=== PATIENT | female | born 1985 | race African-American/Black ===

== ENCOUNTER 2020-01-16 05:01 | Emergency (ER) | payer OTHER ==
[~2020-01-16] VITALS: Ht 154.9 cm; Wt 37.6 kg
[2020-01-16] MEDS ORDERED: PREDNISONE 5 MG5 MG PO (05:18)
[2020-01-16] MEDS ORDERED: NORVASC 2.5 MG2.5 M1 PO (05:19)
[2020-01-16] MEDS ORDERED: ATIVAN0.5 M1 PO (05:22)
[2020-01-16] MEDS ORDERED: ALBUTEROL INH (05:24)
[2020-01-16 05:52] LABS: URINE BILIRUBIN NEGATIVE (Negative); URINE BLOOD NEGATIVE (Negative); URINE CLARITY CLEAR; URINE COLOR YELLOW; URINE GLUCOSE-RANDOM* NEGATIVE (Negative); URINE KETONES NEGATIVE (Negative); URINE LEUKOCYTES-REFLEX NEGATIVE (Negative); URINE NITRITE-REFLEX NEGATIVE (Negative); URINE PROTEIN (DIPSTICK) NEGATIVE (Negative); URINE SPECIFIC GRAVITY 1.015 (1.005-1.035)
[2020-01-16 05:53] LABS: ABSOLUTE NEUTROPHILS 2.6 thou/uL (1.4-8.2); BASOPHILS 0.4 % (0.0-2.0); EOSINOPHILS 1.9 % (0.0-3.0); HEMATOCRIT 36.1 % (37.0-47.0); HEMOGLOBIN 12.1 gm/dL (12.0-15.0); LYMPHOCYTES 29.1 % (24.0-44.0); MCH 31.3 pg (26.0-34.0); MCHC 33.5 g/dL (28.0-37.0); MCV 93.5 fL (80.0-100.0); MONOCYTES 10.7 % (1.0-8.0); PLATELET COUNT 302 thou/uL (150-400); POLYS 57.9 % (36.0-66.0); RBC 3.86 mil/uL (4.20-5.00); WBC 4.5 thou/uL (4.0-11.0)
[2020-01-16 06:09] LABS: ANION GAP 11 mmol/L (7-16); BUN 6 mg/dL (7-18); CALCIUM 8.9 mg/dL (8.5-10.1); CHLORIDE 99 mmol/L (98-107); CO2 25 mmol/L (21-32); CREATININE 0.8 mg/dL (0.6-1.0); GLUCOSE 86 mg/dL (74-106); POTASSIUM 4.2 mmol/L (3.5-5.1); SODIUM 135 mmol/L (136-145)
[2020-01-16 06:18] LABS: TROPONIN-I <0.06 ng/mL (<0.06)
[2020-01-16 07:05] VITALS: BP 161/102
--- NOTE | 2020-01-16 08:10 | EKG ---
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
== END 2020-01-16 07:05 | disposition home or self-care (01) ==
LOC: ER 05:01
PROVIDERS: Emergency Medicine
DX: R07.9 Chest pain, unspecified (principal); M54.6 Pain in thoracic spine; M34.9 Systemic sclerosis, unspecified; R30.0 Dysuria; Z79.899 Other long term (current) drug therapy; Z88.8 Allergy status to other drugs, medicaments and biological substances

== ENCOUNTER 2020-03-08 13:50 | Inpatient (IN) | payer OTHER ==
[~2020-03-08] VITALS: Ht 154.9 cm; Wt 37.6 kg
[~2020-03-08 13:50] MED LIST: ALBUTEROL INH; ATIVAN0.5 M1 PO; NORVASC 2.5 MG2.5 M1 PO; PREDNISONE 5 MG5 MG PO
[2020-03-08 14:03] VITALS: BP 133/106
[2020-03-08 15:23] LABS: BASOPHILS 0.3 % (0.0-2.0); EOSINOPHILS 0.1 % (0.0-3.0); HEMATOCRIT 35.6 % (37.0-47.0); HEMOGLOBIN 11.7 gm/dL (12.0-15.0); LYMPHOCYTES 10.1 % (24.0-44.0); MCHC 32.8 g/dL (28.0-37.0); MCV 97.4 fL (80.0-100.0); MONOCYTES 8.2 % (1.0-8.0); PLATELET COUNT 301 thou/uL (150-400); POLYS 81.3 % (36.0-66.0); RBC 3.65 mil/uL (4.20-5.00); RDW 16.8 % (10.5-14.5); WBC 8.7 thou/uL (4.0-11.0)
[2020-03-08 15:41] LABS: CALCIUM 9.1 mg/dL (8.5-10.1); CREATININE 0.7 mg/dL (0.6-1.0); POTASSIUM 4.1 mmol/L (3.5-5.1)
[2020-03-08 15:43] LABS: ALBUMIN 3.6 g/dL (3.4-5.0); TOTAL BILIRUBIN 2.2 mg/dL (0.2-1.0); TOTAL PROTEIN 9.2 g/dL (6.4-8.2)
[2020-03-08 19:12] VITALS: BP 136/100
[2020-03-08 20:03] VITALS: BP 145/106
[2020-03-08 20:23] VITALS: BP 154/112
--- NOTE | 2020-03-08 21:49 | NUR ---
PATIENT ARRIVED FROM ED VIA CART AT 2009 WITH AIDE. ALERT AND ORIENTED X4. WALKED FROM CART TO BED WITH A STEADY GAIT. IVF INFUSING PER ORDER. PATIENT C/O PAIN TO HER FACE, RIGHT JAW. MS TELE - APPLIED. RESTING QUIETLY WITH PHONE CALLS FREQUENT. WILL MONITOR.
[2020-03-09 00:35] VITALS: BP 143/106
--- NOTE | 2020-03-09 02:02 | NUR ---
PATIENT HAS BP OF 143/106. THIS NURSE RECEIVED ORDER FROM RICE FIELD WORKER FOR NORVASC 5MG WHICH WAS EXPLAINED TO THE PATIENT. PATIENT STATED THAT SHE DID NOT NEED THE MEDICATION UNTILL 0900. EXPLAINED THAT SHE WOULD BE RECEIVING THIS DAILY AT 0900 BUT HER BP WAS ELEVATED NOW AND THAT SHE HAD NOT TAKEN THE MED YESTERDAY THIS DOSEAGE WAS NEEDED NOW. PATIENT STATED HER CHEST WAS NOT TIGHT AND HER HEAD DID NOT HURT SO SHE WAS GOING TO WAIT UNTIL 0900. THIS NURSE EXPLAINED FURTHER REGARDING THAT HTN WAS A "SILENT KILLER" AND SHE MAY NOT FEEL THESE SYMPTOMS BUT STILL BE IN NEED OF THE MEDICATION. PATIENT REFUSED THIS MEDICATION. THIS MEDICATION IS NOT NEW TO HER SHE HAS IT ON HER RECONCILIATION SHEET. WILL MONITOR. MONITOR.
--- NOTE | 2020-03-09 02:21 | NUR ---
PATIENT IS A NEW ADMIT FROM ED ON 03/08/2020 REACHING HER ROOM AT 2009. THIS NURSE ENTERED INFORMATION IN COMPUTER FOR NEW ADMIT, HOWEVER, THIS DID NOT RECORD THERE IS A "GLITCH" IN THE COMPUTER. THEREFORE, A REASSESSMENT WAS DONE FOR RECORDS. PATIENT REFUSED HER SCD'S. REQUESTED THAT HER BS BE TAKEN, WHICH WAS 123. REFUSED BP MEDICATION FOR BP OF 143/106. OTHER MEDICATION CHANGES PER [facility]. PATIENT IS ADMITTED UNDER MS TELE. MEDICATED FOR PAIN X1 AT TIME OF NOTE WITH GOOD RELIEF. HAS NOT SLEPT SINCE COMING TO THE FLOOR. WILL MONITOR.
[2020-03-09 05:26] LABS: BASOPHILS 0.2 % (0.0-2.0); HEMATOCRIT 34.4 % (37.0-47.0); HEMOGLOBIN 10.8 gm/dL (12.0-15.0); LYMPHOCYTES 5.2 % (24.0-44.0); MCH 32.4 pg (26.0-34.0); MCHC 31.3 g/dL (28.0-37.0); MONOCYTES 1.8 % (1.0-8.0); POLYS 92.8 % (36.0-66.0); RBC 3.32 mil/uL (4.20-5.00); RDW 17.4 % (10.5-14.5); WBC 7.5 thou/uL (4.0-11.0)
[2020-03-09 05:32] LABS: MCV 103.6 fL (80.0-100.0); PLATELET COUNT 160 thou/uL (150-400)
[2020-03-09 05:48] LABS: CREATININE 0.4 mg/dL (0.6-1.0); MAGNESIUM 1.4 mg/dL (1.8-2.4)
[2020-03-09 05:57] LABS: POTASSIUM 4.6 mmol/L (3.5-5.1)
[2020-03-09 07:22] VITALS: BP 128/99
[2020-03-09 15:25] VITALS: BP 126/92
[2020-03-09 19:19] VITALS: BP 128/96
[2020-03-10 02:56] VITALS: BP 148/100
--- NOTE | 2020-03-10 05:04 | HC ---
[facility] [place] [address] CONSULTATION Name: LEAH MCDOWELL [facility] [id number] Admission: 03/08/20 Attend Phys: Antolin Powell MD Discharge: Date of : 85 Report #: [id number] THIS REPORT FOR: cc: [facility] - Clinic physician unknown [facility] - Clinic physician unknown Ralf Trujillo MD ~ CC: Antolin Powell [facility] unknown DATE OF SERVICE: 03/09/2020 INFECTIOUS DISEASE CONSULTATION ATTENDING PHYSICIAN: Dr. Powell. REASON FOR CONSULTATION: Right-sided inflammatory process likely dental infection, complicated by skin and soft tissue associated involvement. HISTORY OF PRESENT ILLNESS: Chart reviewed, patient examined. This is a 34-year-old with diagnosis of scleroderma fairly advanced, was diagnosed at age 14, who apparently went to bed the night before, she woke up she noted some swelling on the right side of her face. This was subsequently associated with pain. She notes she has very much difficulty opening her mouth. She admits to poor dentition. She has been evaluated and made some recommendations, which she was disinclined in terms of the procedure. She does note some likely dental infection. She has had some sweats, although she is not aware of fevers. Denies any significant pulmonary-related complaints. She does on questioning, admits to some mild dysphagia, although this may be more baseline. Denies any significant GI or gastrointestinal related complaints. She has been empirically started on clindamycin. Imaging studies of the soft tissue of the neck showed extensive inflammation extends to the right cheek without evidence of abscess. Does note some dental caries, reactive adenopathy, scarring in the right lung apex. Lactic acid had peaked at 3.4 thus far before falling to 1.4. She is not encephalopathic. She does feel somewhat better over the course of the last 12 hours since her admission. ALLERGIES: LATUDA. CURRENT MEDICATIONS: Include lactobacillus, amlodipine, dexamethasone, clindamycin, enoxaparin, famotidine, morphine, ketorolac. PAST MEDICAL HISTORY: As described above the history of scleroderma, underlying asthma, hypertension. SOCIAL HISTORY: Former smoker, occasional ethanol, no illicit drug use. [facility] [address] [place] [address] CONSULTATION Name: LEAH MCDOWELL Room #: 449-I [facility] IN .R.#: [id number] Admission: 03/08/20 Attend Phys: Antolin Powell MD Discharge: Date of : 85 Report #: [id number] FAMILY HISTORY: Noncontributory. REVIEW OF SYSTEMS: As noted above, otherwise unremarkable. PHYSICAL EXAMINATION: GENERAL: She has certainly appearance of advanced scleroderma with tightening of the skin at the face and the distal limbs, fingers are contracted. She is generally lucid, appears chronically ill, undernourished. VITAL SIGNS: Temperature max 99.6, more recently 97.3; pulse 77; respirations 18; blood pressure 128/99. SKIN: Warm, dry. HEENT: Remarkable for asymmetrical swelling involving her right cheek that extends to the neck, does not seem to involve the periorbital, is to a great extent is quite indurated firm and tender, more distal suggestive of a dental-related, it is not fluctuant at all. She is unable to open her mouth to the extent that you can see her teeth. They appear to be in a somewhat significant disrepair. NECK: Generally supple. LUNGS: Diminished breath sounds, scattered crackles. HEART: Regular. I do not appreciate a murmur. ABDOMEN: Firm, nontender. GENITAL AND RECTAL: Deferred. LABORATORY DATA: Electrolytes from this morning, sodium 134, potassium 4.6, chloride 102, bicarbonate is 18, anion gap of 14, BUN and creatinine 4 and 0.4, glucose of 108. CBC: White count of 7.5, H and H 10.2 and 34.4, platelets of 160. Lactic acid serially was 2.1, 3.[address] as noted above. Liver function tests otherwise unremarkable with the exception of total bilirubin of 2.2. Borderline elevated AST of 45. Total protein was elevated at 9.2 with an albumin of 3.6. ASSESSMENT AND PLAN: Right facial skin and soft tissue infection with cellulitis. I think the original issue was probably a dental-related. Agree with that approach. We would adjust therapy to Unasyn, noted ENT to evaluate. We will try some warm moist heat. If there is any intervention that she is going to agree to, we will ideally be able to settle down, hopefully she will drain spontaneous intraorally. Ultimately will need some dental work. We will initiate ____ to monitor expectantly, certainly at risk for additional complications. <ELECTRONICALLY SIGNED> By: Ralf Trujillo MD 03/10/20 0504 [id number] [id number] Ralf Trujillo MD /nt
[2020-03-10 07:16] VITALS: BP 130/88
--- NOTE | 2020-03-10 08:56 | NUR ---
Assumed pt care at 1900. Pt A/OX4, VSS. C/o generalized pain, medicated with Morphine per request and effective. Pt did complete her shower independently at HS. Later this morning pt called for the nurse;charge went to check on pt and offered Toradol for pain but pt declined when she was told it would help her relax and sleep,she called again and complained about tasting IV fluids in her belly and when account underwriter told her that's unsual pt got upset saying no one listens to her, BP elevated at this time. Tia SALES REPRESENTATIVE SUPERVISOR notified;Hydralazine 10mg IVX1 ordered and pt agreeable to taking it and was effective. IV fluids disconnected, pt declined 0400 IV abts saying she didn't want anything via IV then. Pt calm down and apologized to staff for being rude and stated she's not used to being alone and likes someone by her bedside,ensured staff will be checking on her frequently.
[2020-03-10 15:03] VITALS: BP 141/105
--- NOTE | 2020-03-10 16:07 | NUR ---
PT ASSESSED AT START OF SHIFT. PT STATES HERE FACIAL SWELLING IS MUCH IMPROVED TODAY. DR. MCKEON ENT TO SEE PT THIS AM AND WILL FOLLOW. PT STATES HAS GENERALIZED PAIN FROM HER SCLERADERMA BUT MEDS HELP. DIFFICULTY W/ EATING SHE IS NOT ABLE TO OPEN HER MOUTH VERY MUCH. DRINKING WELL AND VOIDING ON BSC. IV FLUIDS DC'D THIS AM. IV ANTIBIOTICS.
[2020-03-10 19:09] VITALS: BP 178/110
--- NOTE | 2020-03-10 23:48 | NUR ---
ASSUMED CARE OF PT AT 1900. A/O X4. C/O GENERALIZED PAIN. PRN PAIN MEDICATION GIVEN. PT IS UP AD KOFI AND ABLE TO MAKE NEEDS KNOWN. ASSESSMENT COMPLETED AND DOCUMENTED. PT HAS BEEN TRANSFERED TO ANOTHER UNIT. REPORT GIVEN TO NURSE.
[2020-03-11] VITALS (7 sets, daily range): BP systolic 113–164; BP diastolic 82–109
--- NOTE | 2020-03-11 04:05 | NUR ---
PT TRANSFERRED FROM AT AROUND 2300HRS. SHE IS ALERT AND ORIENTED. OBSERVED TALKING ON THE PHONE, IN NO DISTRESS. PT ALSO HAD A SANDWICH BOX, AND SHE WAS EATING SLOWLY TRYING TO FINISH. DENIES ANY NAUSEA OR VOMITING. REPORTS THE FACIAL SWELLING GEELS BETTER.SHE WANTED TO BE ON 02/2L FOR COMFORT WHILE SLEEPING. SHE IS UP AD KOFI IN ROOM. USING HEATING PAD. STILL C/O FEELING TIGHT TO UPPER THIGHS AND LOWER BACK FROM ALL THE IV FLUIDS SHE RECEIVED EARLIER. DENIES SOA. CONTINUES ON IV ABTS AND STEROIDS. CALLS APPROPRIATELY.
--- NOTE | 2020-03-11 07:34 | EKG ---
[facility] [place] [address] ELECTROCARDIOGRAM REPORT Name: LEAH MCDOWELL Room #: 440-P ADM IN M.R.#: [id number] Admission: 03/08/20 Attend Phys: Antolin Powell MD Discharge: Date of : 85 Report #: [id number] THIS REPORT FOR: cc: [facility] - Clinic physician unknown [facility] - Clinic physician unknown Jose Borja MD [facility] ~ THIS REPORT FOR: //name// [facility] ED Test Date: 2020-03-08 Test Time: 14:19:52 Pat Name: LEAH MCDOWELL Department: Room: [facility] Gender: F Respiratory Therapy Instructor: [email or web address] : 1985 Requested By: Crystal Foster Order Number: [id number] MD: Jose Borja Measurements Intervals [place] Rate: 125 P: 34 MD: 109 QRS: 66 QRSD: 79 T: 35 QT: 308 QTc: 445 Interpretive Statements Sinus tachycardia Compared to ECG 01/16/2020 05:11:16 T-wave abnormality no longer present Electronically Signed On 03-11-2020 7:34:30 CDT by Jose Borja [email or web address] <ELECTRONICALLY SIGNED> By: Jose Borja MD, FACC 03/11/20 0734 1419 1419 Jose Borja MD, [facility] /EPI
--- NOTE | 2020-03-11 12:21 | NUR ---
INITIAL ASSESSMENT: GUILLERMO reviewed chart and spoke with nursing and attending physician. Pt was admitted from home due to right side facial cellulitis. Pt with hx of scleroderma. Pt is on IV abx. Pt to be discharged home on PO abx. GUILLERMO met with pt at bedside. Introduced role of SW. Pt is alert/orientated x 4. Pt reports she lives at home. Pt was not using and DME prior to admission. No hx of services or post-acute placement. Pt does have Medicare/Medicaid. Pt states her PCP is in [place] [facility]. Pt does not know the physician's name, as she just recently scheduled an appt. Pt states that she will need a nebulizer at time of discharge if breathing treatments are ordered. Pt does not a nebulizer. Pt states she may need transportation home if her sister is not able to pick her up. Recommendation made for pt to follow up at the [facility]. Information placed on pt's chart and contact info for [facility] dental clinic placed in pt's discharge summary. GUILLERMO is following to assist as needed with discharge planning.
[2020-03-11] MEDS ORDERED: HYDROCHLOROTHIA25 M2 PO (16:42)
[2020-03-11] MEDS ORDERED: ACIDOPHILUS1 EAC4 PO (16:42)
[2020-03-11] MEDS ORDERED: AUGMENTIN 875-1 EACH PO (16:42)
[2020-03-11] MEDS ORDERED: PEPCID20 MG PO (16:42)
[2020-03-11] MEDS ORDERED: NEBULIZER MISCELL (18:25)
[2020-03-11] MEDS ORDERED: MEDROL4 M1 PO (18:36)
--- NOTE | 2020-03-11 21:23 | NUR ---
AT APPROX 1800 DR GRANGER SPOKE WITH PATIENT SHE CALLED PATIENT ON HER ROOM PHONE PATIENT IS TO DISCHARGE TO HOME IN AM. 03/12/20. PATIENT SELF CARE WITH ADLS. ABLE TO TURN AND AMBULATE WITH SBA.
[2020-03-12 03:24] VITALS: BP 149/99
--- NOTE | 2020-03-12 03:35 | NUR ---
PT UP AD KOFI IN ROOM. PT C/O PAIN AT HS, GIVEN PERCOCET PRN. PT TOOK THE MED AND STARTED C/O ANXIETY POSSIBLY CAUSED BY THE PILL. SHE HOWEVER STATED THAT SHE CALMS HERSELF DOWN WHENEVER SHE GETS ANXIOUS.WE AGREED THAT TYLENOL WOULD BE USED NEXT TIME SHE IS IN PAIN. PT STILL C/O ABDOMINAL BLOATING FROM FLUIDS SHE HAD BEEN RECEIVING DAYS AGO. SHE IS VOIDING OKAY. NO BM, MIRALAX OFFERED BUT PT DECLINED. PT ALSO REFUSED THE LOVENOX SHOT.SHE IS AFEBRILE.SATTING AT 100% ON ROOM AIR.WILL CONTINUE WITH POC TILL EOS.
[2020-03-12 07:45] VITALS: BP 161/107
--- NOTE | 2020-03-12 09:25 | NUR ---
DISCHARGE NOTE: GUILLERMO reviewed chart and spoke with nursing and attending physician. Pt is medically stable for discharge home today. Pt had discharge orders late yesterday afternoon. Pt stated to staff that she was not ready for discharge due to her level of pain. GUILLERMO met with pt at bedside this morning. Pt agreeable with discharge home today. GUILLERMO provided pt with info for the [facility] dental clinic for follow up care. Pt requesting a nebulizer for home breathing treatments. Options provided for [employer] companies. No preference voiced. GUILLERMO contacted [facility], who is able to provide nebulizers for Medicare pts. GUILLERMO contacted attending physician for script for nebulizer. Pt states her sister may be able to pick her up. Cab voucher available should pt need transportation home. GUILLERMO faxed face sheet to [facility]. Awaiting script for nebulizer. Contact info for [facility] placed in pt's discharge summary. GUILLERMO is following to finalize discharge.
[2020-03-12] MEDS ORDERED: PERCOCET PO (10:35)
--- NOTE | 2020-03-12 11:37 | NUR ---
ASSUMED CARE OF THE PT AT 0700. PT IS AMBULATORY. PT HAS NOT HAD A BM IN SEVERAL DAYS, ABDOMEN IS FIRM. PT REFUSED AM ANTIBIOTIC. PT IS TO D/C TODAY, IS AWAITING RIDE. PT TURNS SELF. R AND L FOREARM INTACT, WILL BE REMOVED PRIOR TO D/C. PAIN CONTROLLED BY PAIN MEDS, SEE EMAR. ELEVATED BP IN THE AM, MEDS GIVEN, SEE EMAR. FALL PRECAUTIONS IN PLACE, BED IN THE LOWEST POSITION AND CALL LIGHT IS WITHIN REACH. WILL CONTINUE TO MONITOR THE PT.
--- NOTE | 2020-03-13 14:10 | NUR ---
SW received call from [facility] requesting pt's discharge summary and medication list for nebulizer. SW faxed requested info to [facility]. Received confirmation. No additional SW needs identified at this time, but is available to assist should needs arise.
== END 2020-03-12 14:08 | disposition home or self-care (01) | DRG 871 ==
LOC: ER 13:50 → EROBS 17:15 → 4S 17:15 → 4W 20:02 → 4S 03-10 22:46
PROVIDERS: Nurse Practitioner; Physician Assistant; ADMIT Hospitalist; ATTEND Hospitalist
DX: A41.9 Sepsis, unspecified organism (principal); E43 Unspecified severe protein-calorie malnutrition; E87.1 Hypo-osmolality and hyponatremia; E87.2 Acidosis; Z68.1 Body mass index [BMI] 19.9 or less, adult; L03.211 Cellulitis of face; E87.8 Other disorders of electrolyte and fluid balance, not elsewhere classified; I10 Essential (primary) hypertension; J45.909 Unspecified asthma, uncomplicated; M34.9 Systemic sclerosis, unspecified; R65.20 Severe sepsis without septic shock; K04.7 Periapical abscess without sinus; Z88.8 Allergy status to other drugs, medicaments and biological substances; Z87.891 Personal history of nicotine dependence; Z79.899 Other long term (current) drug therapy
CPT/HCPCS: 10045; 10100; 10102